=== PATIENT | female | born 1990 | race African-American/Black ===

== ENCOUNTER 2018-06-28 17:21 | Emergency (ER) | payer OTHER ==
[~2018-06-28] VITALS: Ht 161.3 cm; Wt 113.6 kg
[~2018-06-28 17:21] MED LIST: MOTRIN600 MG PO; PERCOCET 5/3251 TA1 PO; PRENATAL COMPLE1 TAB PO
[2018-06-28 18:11] VITALS: Ht 161.3 cm; Wt 113.6 kg
[2018-06-28 19:01] LABS: BASOPHILS 0.2 % (0-2); EOSINOPHILS 2.5 % (0-7); HEMATOCRIT 39.1 % (36.0-48.0); HEMOGLOBIN 12.5 g/dL (12-16); IMMATURE GRANULOCYTES 0.3 % (0-5); LYMPHOCYTES 42.5 % (15-50); MCH 27.4 pg (26.0-34.0); MCV 85.6 fL (80.0-100.0); MEAN PLATELET VOLUME 9.6 fL (7.4-10.4); MONOCYTES 10.1 % (2-11); NEUTROPHILS 44.4 % (40-80); RBC 4.57 10x6/uL (4.00-5.40); RDW 13.9 % (11.5-14.5); WBC 11.5 10x3/uL (4.8-10.8)
[2018-06-28 19:05] LABS: PLATELET COUNT 411 10x3/uL (130-400)
[2018-06-28 19:21] LABS: ALKALINE PHOSPHATASE 100 U/L (46-116); ALT (SGPT) 18 U/L (10-68); BILIRUBIN - TOTAL 0.12 mg/dL (0.2-1.3); CALC OSMOLALITY 276 mosm/kg (275-300); CALCIUM 9.5 mg/dL (8.5-10.1); CARBON DIOXIDE 29.4 mmol/L (21.0-32.0); CHLORIDE - SERUM 103 mmol/L (98-107); CREATININE - SERUM 0.8 mg/dL (0.6-1.3); GLUCOSE 85 mg/dL (74-106); POTASSIUM - SERUM 3.7 mmol/L (3.5-5.1); PROTEIN - SERUM 8.1 g/dL (6.4-8.2); SODIUM 140 mmol/L (136-145); UREA NITROGEN 9 mg/dL (7-18); eGFR NON AFRICAN AMERICAN > 90 mL/min (90-120)
[2018-06-28 19:27] LABS: AMYLASE - SERUM 84 U/L (25-115); LIPASE 177 U/L (73-393)
[2018-06-28 19:29] LABS: TROPONIN-I < 0.017 ng/mL (0.000-0.060)
[2018-06-28 21:07] LABS: APPEARANCE CLEAR (CLEAR); BILIRUBIN NEGATIVE (NEGATIVE); COLOR YELLOW (YELLOW); GLUCOSE NEGATIVE (NEGATIVE); HCG URINE NEGATIVE (NEGATIVE); KETONE NEGATIVE (NEGATIVE); NITRITE NEGATIVE (NEGATIVE); PROTEIN NEGATIVE (NEGATIVE); UROBILINOGEN NORMAL (NORMAL)
[2018-06-28] MEDS ORDERED: TORADOL10 MG PO (21:38)
[2018-06-28 21:50] VITALS: BP 124/72
== END 2018-06-28 21:50 | disposition home or self-care (01) ==
LOC: D.ER 17:21
PROVIDERS: Family Medicine
DX: R10.2 Pelvic and perineal pain (principal); R10.32 Left lower quadrant pain; F17.200 Nicotine dependence, unspecified, uncomplicated

== ENCOUNTER 2020-02-08 06:19 | Observation (INO) | payer MEDICAID ==
[~2020-02-08] VITALS: Ht 161.3 cm; Wt 113.4 kg
--- NOTE | ~2020-02-08 | OP ---
PATIENT NAME: GERA BRAGG MEDICAL RECORD: [id number] :90 LOCATION:[id number] ADMISSION DATE:02/08/20 SURGEON: JENNA DICKEY DO DATE OF OPERATION: 02/08/2020 PREOPERATIVE DIAGNOSIS: Right ruptured ectopic . POSTOPERATIVE DIAGNOSIS: Right ruptured ectopic . PRIMARY SURGEON: Jenna Dickey DO ANESTHESIA: General ET tube. PROCEDURE: Laparoscopic right salpingectomy. FINDINGS: Ruptured ectopic in the right fallopian tube approximately 100 cc hemoperitoneum. Normal appearing right ovary. Left fallopian tube and ovary, grossly normal. Uterus, grossly normal. SPECIMENS: Right fallopian tube with products of conception. ESTIMATED BLOOD LOSS: 5 cc with 100 cc hemoperitoneum. IV FLUIDS: 800 cc crystalloid. URINE OUTPUT: 100 cc clear urine. COMPLICATIONS: None. CONDITION: Stable. DESCRIPTION OF PROCEDURE: The risks, benefits, alternatives and indications of the procedure were discussed with the patient. She voiced understanding of the procedure and signed the consent. She was taken to the OR where general anesthesia was administered and found to be adequate. She was placed in the dorsal supine position. She was prepped and draped in the normal sterile fashion. Marcaine was placed in the umbilical fold and the scalpel was used to create a 5-mm incision in the umbilical fold. The abdomen was elevated and a 5-mm port was placed with the laparoscope for visualization. Hemoperitoneum was achieved to 15 mmHg. A 5 mm port was placed 2 cm superior and 2 cm medial to the left ASIS under direct laparoscopic visualization with good hemostasis. A right 8-mm port was placed 2 cm superior and 2 cm medial to the right ASIS with direct laparoscopic visualization with good hemostasis. The patient was placed in Trendelenburg position and the bowel was displaced from the pelvis. The pelvis was irrigated and suctioned to remove hemoperitoneum. A ruptured right ectopic was noted in the right fallopian tube. The right fallopian tube was grasped with an atraumatic grasper and the Thunderbeat device was used to coagulate and remove the right fallopian tube with the products of conception. The products of conception and fallopian tube were placed in an Endobag and were removed from the abdomen. The pelvis was copiously irrigated and suctioned. The salpingectomy site was reinspected and noted to be hemostatic. The patient was taken out of Trendelenburg position and the hemoperitoneum was released from the abdomen and all ports were removed from the abdomen and the port sites were closed with 5-0 Monocryl suture and Dermabond covering. All needle, lap, sponge, and instrument counts were correct times 2. OPERATIVE REPORT [id number] GERA BRAGG The patient tolerated the procedure well and she was taken to recovery room in stable condition. TRANSINT:[id number] Voice Confirmation ID: [id number] DOCUMENT ID: [id number] JENNA DICKEY DO CC: [id number] DICTATION DATE: 02/08/20 1139 BUSINESS DEVELOPMENT OFFICER: 02/08/20 1652 ADM IN [facility] [address] [id number]
[~2020-02-08 06:19] MED LIST changes: +TORADOL10 MG PO
[2020-02-08 06:28] VITALS: Ht 161.3 cm; Wt 113.4 kg
[2020-02-08 07:44] LABS: BASOPHILS 0.1 % (0-2); EOSINOPHILS 0.8 % (0-7); HEMATOCRIT 36.2 % (36.0-48.0); HEMOGLOBIN 11.3 g/dL (12-16); IMMATURE GRANULOCYTES 0.4 % (0-5); LYMPHOCYTES 19.6 % (15-50); MCH 27.1 pg (26.0-34.0); MCHC 31.2 g/dL (31.0-37.0); MCV 86.8 fL (80.0-100.0); MEAN PLATELET VOLUME 9.3 fL (7.4-10.4); MONOCYTES 6.5 % (2-11); NEUTROPHILS 72.6 % (40-80); PLATELET COUNT 429 10x3/uL (130-400); RBC 4.17 10x6/uL (4.00-5.40); RDW 14.5 % (11.5-14.5); WBC 13.4 10x3/uL (4.8-10.8)
[2020-02-08 08:24] LABS: HCG SERUM POSITIVE (NEGATIVE)
[2020-02-08 08:50] LABS: CREATINE KINASE 58 UL (21-215); HCG - QUANTITATIVE (MATERNAL) 5524 mIU/mL
[2020-02-08 08:55] LABS: BILIRUBIN NEGATIVE (NEGATIVE); GLUCOSE NEGATIVE (NEGATIVE); KETONE NEGATIVE (NEGATIVE); NITRITE NEGATIVE (NEGATIVE); UROBILINOGEN NORMAL (NORMAL)
[2020-02-08 08:58] LABS: RED CELLS - URINE 0-5 /hpf (0-5); WHITE CELLS - URINE NSEEN /hpf (NEGATIVE)
[2020-02-08 08:59] LABS: BACTERIA FEW /hpf (NEGATIVE); EPITHELIAL CELLS 0-5 /hpf (0-5)
[2020-02-08 12:09] VITALS: BP 121/61
--- NOTE | 2020-02-08 12:18 | NUR ---
RECEIVED BY KIKE TO ROOM FROM RECOVERY, SHE IS ABLE TO MOVE HERSELF OVER TO ROOM. RATES PAIN AT 3/10 AT THIS TIME, IV TO RIGHT AC SALINE LOCKED SINCE PT DENIES NAUSEA. ABDOMEN SOFT TO TOUCH, DERMABOND NOTED TO INCISION SITES. SCD'S IN PLACE BILAT AND PLUGGED IN TO PUMP. PT STATES UNDERSTANDING TO PLAN OF CARE, LARGE ICE WATER REQUESTED AND REGULAR DIET TRAY SERVED. CALL LIGHT IN REACH WITH SIDE RAILS UP X 2. SPOUSE PRESENT AT BEDSIDE.
--- NOTE | 2020-02-08 13:00 | NUR ---
LARGE ICE WITH LEMON [facility] REQUESTED. PT STATES SHE WAS ABLE TO EAT SOME OF HER LUNCH BUT C/O NOTHING TASTE RIGHT, REASSURED HER THAT WAS DUE TO ANESTHESIA. SHE ALSO STATES THAT SHE GOT UP TO BATHROOM WITH ASSISTANCE FROM SPOUSE. SHE DENIED NAUSEA OR DIZZINESS AND WAS ABLE TO VOID WITHOUT COMPLAINT. DENIES NEEDS AT THIS TIME. CALL LIGHT IN REACH WITH SIDE RAILS UP X 2.
--- NOTE | 2020-02-08 13:58 | NUR ---
SALINE LOCK REMOVED REQUESTED BY PATIENT. CATH NOTED TO BE INTACT. SHE CONTINUE TO DENY NAUSEA AND RATES PAIN AT 3/10. CALL LIGHT IN REACH.
[2020-02-08] MEDS ORDERED: PERCOCET 5-3251 TAB PO (14:05)
--- NOTE | 2020-02-08 15:00 | NUR ---
UP TO BATHROOM PER SELF, RATES PAIN/CRAMPING AT 3/10. SHE HAS GOTTEN DRESSED AND STATES THAT HER SPOUSE HAS GONE TO GET HER CAR AND WHEN HE GETS BACK SHE WILL BE READY TO DISCHARGE. DENIES NEEDS AT THIS TIME. CALL LIGHT IN REACH.
--- NOTE | 2020-02-08 17:30 | NUR ---
VERBAL AND WRITTEN DISCHARGE INSTRUCTIONS GONE OVER WITH PT BY Kalyn JASSO RN. PT WAS GIVEN WRITTEN SCRIPT FOR PERCOCET 5/325MG.
--- NOTE | 2020-02-08 17:40 | NUR ---
TAKEN OUT BY WHEELCHAIR, HOME BY PRIVATE CAR WITH SPOUSE.
== END 2020-02-08 17:40 | disposition home or self-care (01) ==
LOC: D.ER 06:19 → D.LD 09:31 → OBSVTIME 11:00 → D.LD 17:40
PROVIDERS: Family Medicine; ADMIT Student in an Organized Health Care Education/Training Program; ATTEND Student in an Organized Health Care Education/Training Program
DX: O00.101 Right tubal pregnancy without intrauterine pregnancy (principal); N93.9 Abnormal uterine and vaginal bleeding, unspecified; R10.2 Pelvic and perineal pain; Z3A.01 Less than 8 weeks gestation of pregnancy; O99.331 Smoking (tobacco) complicating pregnancy, first trimester